=== PATIENT | female | born 1935 | race Asian ===

== ENCOUNTER 2017-05-11 15:59 | Inpatient (IN) | payer OTHER ==
[~2017-05-11] VITALS: Ht 142.2 cm; Wt 44.0 kg
[~2017-05-11 15:59] MED LIST: ASPIR 8181 MG PO; ASPIR-LOW81 M1 PO; LAC PO; LEVAQUIN750 MG PO; WARFARIN SODIUM5 MG PO; XARELTO10 M1 PO
[2017-05-11 17:18] LABS: BASOPHIL % 0.1 % (0-2); RED CELL DISTRIBUTION WIDTH 14.5 % (11.5-14.5)
[2017-05-11] MEDS ORDERED: DIGOXIN0.125 M1 PO (17:25)
[2017-05-11] MEDS ORDERED: LOPRESSOR50 M1 PO (17:25)
[2017-05-11 17:26] LABS: PLATELET COUNT 99 x10^3mcL (130-400)
[2017-05-11] MEDS ORDERED: ELEQUIS (17:26)
[2017-05-11 17:42] LABS: CALCIUM 8.7 mg/dL (8.5-10.1); CHLORIDE SERUM 98 mmol/L (98-107); CREATININE SERUM 0.6 mg/dL (0.6-1.0); GLUCOSE SERUM 89 mg/dL (74-106); POTASSIUM SERUM 4.1 mmol/L (3.5-5.1); SODIUM SERUM 135 mmol/L (136-145)
[2017-05-11 17:47] LABS: ALBUMIN 3.6 g/dL (3.4-5.0); ALKALINE PHOSPHATASE 70 U/L (46-116); ALT/SGPT 39 U/L (14-59); BILIRUBIN TOTAL 1.88 mg/dL (0.20-1.00); TOTAL PROTEIN, SERUM 7.1 g/dL (6.4-8.2)
[2017-05-11 18:26] LABS: AST/SGOT 53 U/L (15-37)
[2017-05-11 19:44] LABS: MAGNESIUM 1.8 mg/dL (1.8-2.4); PHOSPHOROUS 2.4 mg/dL (2.5-4.9)
[2017-05-11 19:54] LABS: FREE T4 1.28 ng/dL (0.76-1.46); FREE THYROXINE INDEX 2.9 ug/dL (1.4-4.5); T3 TOTAL 0.74 ng/mL; T4(THYROXINE) 7.5 ug/dL (4.7-13.3)
[2017-05-11 20:16] VITALS: BP 141/75
[2017-05-11 22:05] VITALS: BP 141/75
[2017-05-11 22:42] VITALS: BP 141/75
[2017-05-11 23:23] VITALS: BP 115/63
[2017-05-12 05:37] VITALS: BP 107/59
[2017-05-12 06:27] LABS: BASOPHIL % 0.3 % (0-2); RED CELL DISTRIBUTION WIDTH 14.4 % (11.5-14.5)
[2017-05-12 06:34] LABS: CALCIUM 8.4 mg/dL (8.5-10.1); CARBON DIOXIDE 24.3 mmol/L (21-32); CHLORIDE SERUM 107 mmol/L (98-107); CREATININE SERUM 0.8 mg/dL (0.6-1.0); GLUCOSE SERUM 80 mg/dL (74-106); MAGNESIUM 1.7 mg/dL (1.8-2.4); PHOSPHOROUS 3.2 mg/dL (2.5-4.9); SODIUM SERUM 139 mmol/L (136-145)
[2017-05-12 07:36] LABS: PLATELET COUNT 60 x10^3mcL (130-400)
[2017-05-12 10:20] VITALS: BP 107/51
[2017-05-12 12:53] VITALS: BP 117/60
[2017-05-12 13:00] LABS: microscopic required? YES; urine erythrocyte 3+ (NEGATIVE)
[2017-05-12 19:18] VITALS: BP 129/61
[2017-05-12 22:56] VITALS: BP 106/70
[2017-05-12 23:39] VITALS: Ht 142.2 cm; Wt 44.0 kg
[2017-05-13 05:38] VITALS: BP 134/66
[2017-05-13 06:25] LABS: BASOPHIL % 0.3 % (0-2); RED CELL DISTRIBUTION WIDTH 14.2 % (11.5-14.5)
[2017-05-13 06:34] LABS: PLATELET COUNT 61 x10^3mcL (130-400)
[2017-05-13 06:56] LABS: CALCIUM 8.9 mg/dL (8.5-10.1); CHLORIDE SERUM 102 mmol/L (98-107); CREATININE SERUM 0.9 mg/dL (0.6-1.0); GLUCOSE SERUM 110 mg/dL (74-106); POTASSIUM SERUM 4.6 mmol/L (3.5-5.1); SODIUM SERUM 138 mmol/L (136-145)
[2017-05-13 10:27] VITALS: BP 104/54
[2017-05-13 12:59] VITALS: BP 95/42
[2017-05-13 17:30] VITALS: BP 107/76
[2017-05-13 21:01] VITALS: BP 123/54
[2017-05-14 05:46] VITALS: BP 129/71
[2017-05-14 08:46] VITALS: BP 117/71
[2017-05-14 10:44] VITALS: BP 120/67
[2017-05-14 15:55] LABS: RED CELL DISTRIBUTION WIDTH 13.8 % (11.5-14.5)
[2017-05-14 16:16] LABS: CALCIUM 8.8 mg/dL (8.5-10.1); CHLORIDE SERUM 99 mmol/L (98-107); CREATININE SERUM 0.9 mg/dL (0.6-1.0); GLUCOSE SERUM 112 mg/dL (74-106); POTASSIUM SERUM 4.8 mmol/L (3.5-5.1); SODIUM SERUM 132 mmol/L (136-145)
[2017-05-14 16:21] LABS: PLATELET COUNT 52 x10^3mcL (130-400)
[2017-05-14 16:32] LABS: BAND NEUTROPHIL 12 % (0-10); BASOPHIL 0 % (0-2); MONOCYTE 20 % (0-7); SEGMENTED NEUTROPHILS 60 % (37-75)
[2017-05-14 16:34] LABS: PLATELET MORPHOLOGY PLATELETS DECREASED; rbc morphology (normal/abnorm) ABNORMAL (NORMAL)
[2017-05-14 16:37] VITALS: BP 133/81
[2017-05-14 21:11] VITALS: BP 134/64
[2017-05-15 05:57] VITALS: BP 150/86
[2017-05-15 06:43] LABS: RED CELL DISTRIBUTION WIDTH 13.9 % (11.5-14.5)
[2017-05-15 06:49] LABS: BASOPHIL % 0 % (0-2); CALCIUM 8.9 mg/dL (8.5-10.1); CARBON DIOXIDE 23.7 mmol/L (21-32); CHLORIDE SERUM 99 mmol/L (98-107); CREATININE SERUM 0.8 mg/dL (0.6-1.0); GLUCOSE SERUM 90 mg/dL (74-106); MAGNESIUM 1.9 mg/dL (1.8-2.4); PLATELET COUNT 56 x10^3mcL (130-400); POTASSIUM SERUM 4.7 mmol/L (3.5-5.1); SODIUM SERUM 130 mmol/L (136-145)
[2017-05-15 09:53] VITALS: BP 141/80
[2017-05-15 13:05] VITALS: BP 144/78
[2017-05-15] MEDS ORDERED: COUGH100 MG/5 M PO (14:46)
== END 2017-05-15 15:45 | disposition home or self-care (01) | DRG 113 ==
LOC: ED 15:59 → DU 18:35
PROVIDERS: Emergency Medicine; Family Medicine
DX: J06.9 Acute upper respiratory infection, unspecified (principal); N17.0 Acute kidney failure with tubular necrosis; I50.43 Acute on chronic combined systolic (congestive) and diastolic (congestive) heart failure; D69.6 Thrombocytopenia, unspecified; E83.39 Other disorders of phosphorus metabolism; I31.3 Pericardial effusion (noninflammatory); I11.0 Hypertensive heart disease with heart failure; M54.2 Cervicalgia; I48.91 Unspecified atrial fibrillation; Z53.29 Procedure and treatment not carried out because of patient's decision for other reasons; I25.10 Atherosclerotic heart disease of native coronary artery without angina pectoris; Z79.82 Long term (current) use of aspirin; Z68.1 Body mass index [BMI] 19.9 or less, adult; Z79.01 Long term (current) use of anticoagulants; Z95.5 Presence of coronary angioplasty implant and graft; Z88.0 Allergy status to penicillin; Z79.899 Other long term (current) drug therapy
CPT/HCPCS: 36600; 83880; 84439; 87804; J1885; J3475; J7030; J7620; Q0092; Q9967

== ENCOUNTER 2017-09-25 13:14 | Inpatient (IN) | payer OTHER ==
[~2017-09-25] VITALS: Ht 142.2 cm; Wt 38.0 kg
[~2017-09-25 13:14] MED LIST changes: +COUGH100 MG/5 M PO; +DIGOXIN0.125 M1 PO; +ELEQUIS; +LOPRESSOR50 M1 PO
[2017-09-25 14:12] LABS: BASOPHIL % 0.4 % (0-2); PLATELET COUNT 80 x10^3mcL (130-400); RED CELL DISTRIBUTION WIDTH 13.9 % (11.5-14.5)
[2017-09-25] MEDS ORDERED: NITROSTAT0.4 MG SL (14:22)
[2017-09-25 14:49] LABS: CALCIUM 8.8 mg/dL (8.5-10.1); CARBON DIOXIDE 24.7 mmol/L (21-32); CHLORIDE SERUM 107 mmol/L (98-107); CREATININE SERUM 0.9 mg/dL (0.6-1.0); GLUCOSE SERUM 113 mg/dL (74-106); POTASSIUM SERUM 4.1 mmol/L (3.5-5.1); SODIUM SERUM 139 mmol/L (136-145)
[2017-09-25 14:53] LABS: ALBUMIN 3.4 g/dL (3.4-5.0); ALKALINE PHOSPHATASE 96 U/L (46-116); ALT/SGPT 64 U/L (14-59); AST/SGOT 54 U/L (15-37); BILIRUBIN TOTAL 1.5 mg/dL (0.20-1.00); TOTAL PROTEIN, SERUM 7.1 g/dL (6.4-8.2)
[2017-09-25 16:39] VITALS: BP 151/80
[2017-09-25 17:03] LABS: T3 TOTAL 0.94 ng/mL
[2017-09-25 17:06] LABS: FREE T4 1.11 ng/dL (0.76-1.46); FREE THYROXINE INDEX 2.8 ug/dL (1.4-4.5); T4(THYROXINE) 7.6 ug/dL (4.7-13.3)
[2017-09-25 17:21] LABS: CHOLESTEROL/HDL RATIO 2.6; PHOSPHOROUS 3.6 mg/dL (2.5-4.9)
[2017-09-25 17:30] VITALS: BP 138/67
[2017-09-25 18:05] LABS: RED BLOOD CELLS 3.28 M/mm3 (4.10-5.10)
[2017-09-25 18:34] LABS: IRON 101 ug/dL (50-170); TOTAL IRON BINDING CAPACITY 361 ug/dL (250-450)
[2017-09-25 18:38] LABS: microscopic required? YES; urine erythrocyte 2+ (NEGATIVE)
[2017-09-25 20:37] VITALS: BP 115/58
[2017-09-25 22:04] VITALS: Ht 142.2 cm; Wt 38.0 kg
[2017-09-26 04:37] VITALS: BP 124/61
[2017-09-26 07:01] LABS: CALCIUM 8.8 mg/dL (8.5-10.1); CHLORIDE SERUM 106 mmol/L (98-107); CREATININE SERUM 0.9 mg/dL (0.6-1.0); GLUCOSE SERUM 88 mg/dL (74-106); MAGNESIUM 2.1 mg/dL (1.8-2.4); PHOSPHOROUS 4.3 mg/dL (2.5-4.9); POTASSIUM SERUM 4.1 mmol/L (3.5-5.1); SODIUM SERUM 141 mmol/L (136-145)
[2017-09-26 07:46] LABS: BASOPHIL % 0.3 % (0-2); PLATELET COUNT 84 x10^3mcL (130-400); RED CELL DISTRIBUTION WIDTH 13.4 % (11.5-14.5)
[2017-09-26 08:55] VITALS: BP 113/86
[2017-09-26 12:17] VITALS: BP 115/77
[2017-09-26 12:58] VITALS: BP 113/65
== END 2017-09-26 13:50 | disposition home or self-care (01) | DRG 194 ==
LOC: ED 13:14 → DU 16:00
PROVIDERS: Family Medicine
DX: I11.0 Hypertensive heart disease with heart failure (principal); N17.0 Acute kidney failure with tubular necrosis; E86.0 Dehydration; I48.2 Chronic atrial fibrillation; G90.8 Other disorders of autonomic nervous system; I08.1 Rheumatic disorders of both mitral and tricuspid valves; Z88.0 Allergy status to penicillin; Z95.5 Presence of coronary angioplasty implant and graft; I50.43 Acute on chronic combined systolic (congestive) and diastolic (congestive) heart failure
CPT/HCPCS: 83880; 84439; 97110-GP; 97116-GP; C9113; J1940; J7030; J7040; J8597; Q0092

== ENCOUNTER 2018-07-27 20:41 | Inpatient (IN) | payer OTHER ==
[~2018-07-27] VITALS: Ht 142.2 cm; Wt 34.6 kg
[~2018-07-27 20:41] MED LIST changes: +L20 PO; +NITROSTAT0.4 MG SL; +ZES10 PO
[2018-07-27 20:48] VITALS: Ht 142.2 cm; Wt 34.6 kg
[2018-07-27 21:32] LABS: BASOPHIL % 0.7 % (0-2); RED CELL DISTRIBUTION WIDTH 13.7 % (11.5-14.5)
[2018-07-27 21:33] LABS: PLATELET COUNT 110 x10^3mcL (130-400)
[2018-07-27 21:37] LABS: CALCIUM 8.8 mg/dL (8.5-10.1); CARBON DIOXIDE 29.3 mmol/L (21-32); CHLORIDE SERUM 106 mmol/L (98-107); CREATININE SERUM 0.9 mg/dL (0.6-1.0); GLUCOSE SERUM 89 mg/dL (74-106); POTASSIUM SERUM 4.4 mmol/L (3.5-5.1); SODIUM SERUM 140 mmol/L (136-145)
[2018-07-27 21:41] LABS: ALBUMIN 3.5 g/dL (3.4-5.0); ALKALINE PHOSPHATASE 72 U/L (46-116); ALT/SGPT 21 U/L (14-59); AST/SGOT 23 U/L (15-37); BILIRUBIN TOTAL 0.6 mg/dL (0.20-1.00); LIPASE 203 IU/L (73-393); MAGNESIUM 1.9 mg/dL (1.8-2.4); TOTAL PROTEIN, SERUM 7.2 g/dL (6.4-8.2)
[2018-07-28] VITALS (7 sets, daily range): BP systolic 94–144; BP diastolic 38–94
[2018-07-28 01:26] LABS: RED BLOOD CELLS 3.1 M/mm3 (4.10-5.10)
[2018-07-28 01:52] LABS: microscopic required? YES; urine erythrocyte 2+ (NEGATIVE)
[2018-07-28 02:03] LABS: IRON 100 ug/dL (50-170); TOTAL IRON BINDING CAPACITY 267 ug/dL (250-450)
[2018-07-28 06:00] LABS: CHLORIDE SERUM 104 mmol/L (98-107); CREATININE SERUM 0.9 mg/dL (0.6-1.0); GLUCOSE SERUM 82 mg/dL (74-106); MAGNESIUM 1.9 mg/dL (1.8-2.4); PHOSPHOROUS 3.7 mg/dL (2.5-4.9); POTASSIUM SERUM 3.6 mmol/L (3.5-5.1); SODIUM SERUM 141 mmol/L (136-145)
[2018-07-28 06:09] LABS: BASOPHIL % 0.5 % (0-2)
[2018-07-28 06:29] LABS: PLATELET COUNT 106 x10^3mcL (130-400)
[2018-07-29 05:00] VITALS: BP 118/49
[2018-07-29 09:01] VITALS: BP 158/68
[2018-07-29 12:22] VITALS: BP 120/45
[2018-07-29 13:15] VITALS: BP 120/48
== END 2018-07-29 13:30 | disposition home or self-care (01) | DRG 203 ==
LOC: ED 20:41 → DU 23:18
PROVIDERS: Emergency Medicine; ADMIT Internal Medicine
DX: M94.0 Chondrocostal junction syndrome [Tietze] (principal); N17.0 Acute kidney failure with tubular necrosis; I48.91 Unspecified atrial fibrillation; I11.0 Hypertensive heart disease with heart failure; I50.30 Unspecified diastolic (congestive) heart failure; M06.9 Rheumatoid arthritis, unspecified; Z88.0 Allergy status to penicillin; I25.10 Atherosclerotic heart disease of native coronary artery without angina pectoris; Z79.899 Other long term (current) drug therapy; Z82.49 Family history of ischemic heart disease and other diseases of the circulatory system; D61.818 Other pancytopenia; I08.1 Rheumatic disorders of both mitral and tricuspid valves
CPT/HCPCS: 83880; J1940; J7030; Q0092

== ENCOUNTER 2018-09-14 16:21 | Inpatient (IN) | payer OTHER ==
[~2018-09-14] VITALS: Ht 144.8 cm; Wt 33.6 kg
[2018-09-14 16:30] VITALS: Ht 144.8 cm; Wt 33.6 kg
--- NOTE | 2018-09-14 16:34 | NUR ---
EKG IN TRIAGE.
[2018-09-14 17:04] LABS: BASOPHIL % 0.6 % (0-2); RED CELL DISTRIBUTION WIDTH 14.1 % (11.5-14.5)
[2018-09-14 17:05] LABS: PLATELET COUNT 117 x10^3mcL (130-400)
--- NOTE | 2018-09-14 17:05 | NUR ---
PT PRESENTS TO ED WITH C/O OF SOB AND CHEST PAIN. PER DAUGHTER PT HAS BEEN C/O OF SOB AND MINOR CHEST PAIN X2 WKS, BUT PAIN HAS BECOME MORE SEVERE TODAY. PT ALSO STS SHE IS FEELING DIZZY. GRAND DAUGHTER STS PT HAS NOT TAKEN MEDICATION FOR THE PAIN AT HOME. PT DENIES ABDOMINAL PAIN, SYNCOPE, HEAD PAIN, OR FEVER. PT AAOX4, RESP E/U, LAYING ON GURNEY IN POSITION OF COMFORT, ON FULL CONCHE OPERATOR, NO ACUTE DISTRESS NOTED AT THIS TIME, WILL CONTINUE MONITOR.
[2018-09-14 17:12] LABS: CALCIUM 9.4 mg/dL (8.5-10.1); CARBON DIOXIDE 30.4 mmol/L (21-32); CHLORIDE SERUM 104 mmol/L (98-107); GLUCOSE SERUM 124 mg/dL (74-106); POTASSIUM SERUM 4.3 mmol/L (3.5-5.1); SODIUM SERUM 139 mmol/L (136-145)
[2018-09-14 17:17] LABS: ALBUMIN 3.6 g/dL (3.4-5.0); ALKALINE PHOSPHATASE 67 U/L (46-116); ALT/SGPT 27 U/L (14-59); AST/SGOT 27 U/L (15-37); BILIRUBIN TOTAL 0.49 mg/dL (0.20-1.00); MAGNESIUM 1.9 mg/dL (1.8-2.4)
--- NOTE | 2018-09-14 19:10 | NUR ---
RECEIVED REPORT FROM SLY LUCIANO. I WILL RESUME FURTHER CARE OF THIS PATIENT.
--- NOTE | 2018-09-14 19:20 | NUR ---
PT IS LAYING IN BED, AAOX4, NO SIGNS OF DISTRESS, RESP E/U, PT DENIES ANY SOB AT THIS TIME. PT IS COLD, OFFERED PT A WARM BLANKET. DAUGHTER AT THE BEDSIDE. WILL CONT TO MONITOR.
--- NOTE | 2018-09-14 19:57 | NUR ---
DR GRIMALDO AT BEDSIDE DISCUSSING PLAN OF CARE WITH PATIENT.
--- NOTE | 2018-09-14 20:04 | NUR ---
MED REC AND BELONGINGS LIST COMPLETE.
--- NOTE | 2018-09-14 20:38 | NUR ---
MEDICATED PT PER MD ORDERS, SEE EMAR. PT TOLERATED WELL. PT IS AAOX4, NO SIGNS OF DISTRESS, RESP E/U. WILL CONT TO MONITOR.
--- NOTE | 2018-09-14 21:31 | NUR ---
GAVE REPORT TO SAM LUCIANO ON TELE, WHO WILL RESUME FURTHER CARE OF THIS PATEINT.
[2018-09-14 21:40] LABS: PHOSPHOROUS 3.7 mg/dL (2.5-4.9)
[2018-09-14 21:42] LABS: CHOLESTEROL/HDL RATIO 2.8
--- NOTE | 2018-09-14 21:45 | NUR ---
RECIEVED PT FROM ER, PT ADMIT FOR CHF, BENIGN POSITIONAL VERTIGO, PT IS A/O X4, VERBAL RESPONSIVE, DENY ANY HEADACHE OR DIZZINESS, LUNG SOUND CLEAR BILATERAL, NO COUGH, NO SOB, PT IS ON TELE 12, A.FIB, C/O CHEST PAIN AT LEFT SIDE AND RADIATED TO BACK, BOWEL SOUND PRESENT ALL 4 QUADRANTS, NO DISTENTION, NO TENDER. PEDAL PULSE PRESENT BOTH FEET, NO EDEMA, IV AT RIGHT FA, NO LEAKING, NO INFILTRATION. ALL ADLS ASSIST, ALL NEED MET, CALL LIGHT IN REACH, WILL CONTINUE TO MONITOR.
--- NOTE | 2018-09-14 21:45 | NUR ---
RECIEVED PT FROM ER, PT ADMIT FOR CHF, BENIGN POSITIONAL VERTIGO, PT IS A/O X4, VERBAL RESPONSIVE, DENY ANY HEADACHE OR DIZZINESS, LUNG SOUND DIM BILATERAL, NO COUGH, NO SOB, PT IS ON TELE 12, A.FIB, C/O CHEST PAIN AT LEFT SIDE AND RADIATED TO BACK, BOWEL SOUND PRESENT ALL 4 QUADRANTS, NO DISTENTION, NO TENDER. PEDAL PULSE PRESENT BOTH FEET, NO EDEMA, IV AT RIGHT FA, NO LEAKING, NO INFILTRATION. ALL ADLS ASSIST, ALL NEED MET, CALL LIGHT IN REACH, WILL CONTINUE TO MONITOR.
[2018-09-14 22:07] VITALS: BP 147/77
[2018-09-14] MEDS ORDERED: ELIQUIS2.5 MG PO (22:26)
--- NOTE | 2018-09-14 22:27 | NUR ---
PT REQUESTED TO HAVE PREVIOUS IV REMOVED DUE TO PAIN AND DISCOMFORT. NEW IV STARTED TO RFA, #22G, FLUSHED WELL WITH NS AND GOOD BLOOD RETURN. S/L AT THIS TIME. NO DISTRESS OBSERVED. CALL LIGHT WITHIN REACH. WILL CONTINUE TO MONITOR
--- NOTE | 2018-09-14 23:07 | NUR ---
PER CATERER HELPER, PT'S HR DROPPED LOW 39. PT LAYING IN BED, AWARE AND ALERT, EASILY AROUSABLE TO VERBAL STIMULI. AFIB TO TELE #12 AT THIS TIME, HR 54. CALL LIGHT WITHIN REACH. WILL CONTINUE TO MONITOR
--- NOTE | 2018-09-14 23:55 | NUR ---
PT LAYING IN BED, BREATHING EVEN AND UNLABORED. NO ACUTE DISTRESS OBSERVED. AROUSABLE TO VERBAL STIMULI. COMFORT AND SAFETY MEASURES IN PLACE. CALL LIGHT WITHIN REACH. WILL CONTINUE TO MONITOR
--- NOTE | 2018-09-15 03:54 | NUR ---
PER PROGRAMMER ENGINEERING AND SCIENTIFIC, PT'S HR DROPPED TO 37. PT LAYING IN BED, AWAKE AND ALERT, EASILY AROUSABLE TO VERBAL STIMULI. AFIB TO TELE #12 AT THIS TIME. CALL LIGHT WITHIN REACH. WILL CONTINUE TO MONITOR
--- NOTE | 2018-09-15 04:20 | NUR ---
PT AMBULATED TO BATHROOM AND BACK TO BED WITHOUT INCIDENT. PT ABLE TO URINATE. UA COLLECTED ORDERED. 600 ML CLEAR YELLOW URINE EMPTIED. PT APPEARS TO BE IN PAIN AND GRABBING LLE. ATTEMPTED TO MEDICATED PT WITH TYLENOL BUT PT REFUSED. COMFORT AND SAFETY MEASURES REMAIN IN PLACE. CALL LIGHT WITHIN REACH. WILL CONTINUE TO MONITOR
--- NOTE | 2018-09-15 05:12 | NUR ---
NO SIGNIFICANT CHANGES TO REPORT, PT COMPLIED WITH NURSING CARE THROUGHOUT THE SHIFT WITH NO ACUTE EVENTS OVERNIGHT. NO ACUTE DISTRESS OBSERVED AT THIS TIME. PT LAYING IN BED, BREATHING EVEN AND UNLABORED, AROUSABLE TO VERBAL STIMULI. COMFORT AND SAFETY MEASURES MAINTAINED. ALL NEEDS ASSESSED AND ATTENDED TO. CALL LIGHT WITHIN REACH. WILL CONTINUE TO MONITOR AND ENDORSE CARE TO DAY SHIFT NURSE
[2018-09-15 05:33] LABS: microscopic required? YES; urine erythrocyte 2+ (NEGATIVE)
--- NOTE | 2018-09-15 06:10 | NUR ---
PRE OP CHECKLIST INITIATED. PT HAS BEEN NPO SINCE 0000 LAST NIGHT. NO SIGNIFICANT CHANGES TO REPORT, PT COMPLIED WITH NURSING CARE THROUGHOUT THE SHIFT WITH NO ACUTE EVENTS OVERNIGHT. NO ACUTE DISTRESS OBSERVED AT THIS TIME. DENIES PAIN OR DISCOMFORT. PT LAYING IN BED, BREATHING EVEN AND UNLABORED, AROUSABLE TO VERBAL STIMULI. COMFORT AND SAFETY MEASURES MAINTAINED. ALL NEEDS ASSESSED AND ATTENDED TO. CALL LIGHT WITHIN REACH. WILL CONTINUE TO MONITOR AND ENDORSE CARE TO DAY SHIFT NURSE
[2018-09-15 06:50] VITALS: BP 130/76
[2018-09-15 06:51] LABS: CALCIUM 9.8 mg/dL (8.5-10.1); CARBON DIOXIDE 34.4 mmol/L (21-32); CHLORIDE SERUM 101 mmol/L (98-107); GLUCOSE SERUM 84 mg/dL (74-106); POTASSIUM SERUM 3.7 mmol/L (3.5-5.1); SODIUM SERUM 141 mmol/L (136-145)
[2018-09-15 06:54] LABS: BASOPHIL % 0.6 % (0-2); PLATELET COUNT 123 x10^3mcL (130-400); RED CELL DISTRIBUTION WIDTH 13.6 % (11.5-14.5)
--- NOTE | 2018-09-15 07:05 | NUR ---
RECEIVED BEDSIDE REPORT FROM FILTER FILLER NURSE AT THIS TIME. PATIENT RESTING COMFORTABLY IN BED. NO APPARENT DISTRESS OR DISCOMFORT NOTED. BREATHING EVEN AND UNLABORED. NO RESPIRATORY DISTRESS NOTED. NO INDICATION OF CHEST PAIN AT THIS TIME. IV PATENT AND INTACT TO THE RFA. ALL QUESTIONS AND CONCERNS ADDRESSED. ALL NEEDS ATTENDED TO. WILL CONTINUE TO MONITOR
[2018-09-15 07:55] VITALS: BP 120/64
--- NOTE | 2018-09-15 09:50 | NUR ---
PHYSICAL THERAPY AT BEDSIDE WORKING WITH PATIENT. PATIENT AMBULATING HALLWAYS WELL. NO APPARENT DISTRESS OR DISCOMFORT NOTED.
--- NOTE | 2018-09-15 10:02 | NUR ---
ALL MORNING MEDICATIONS ADMINISTERED AT THIS TIME. PATIENT TOLERATED MEDICATIONS WELL. NO ADVERSE EFFECTS NOTED. ALL NEEDS ATTENDED TO. WILL CONTINUE TO MONITOR
[2018-09-15 12:28] VITALS: BP 93/40
--- NOTE | 2018-09-15 13:13 | NUR ---
PATIENT SITTING UP IN BED EATING LUNCH AT THIS TIME. PATIENT TOLERATING DIET WELL. NO APPARENT DISTRESS OR DISCOMFORT NOTED. ALL NEEDS ATTENDED TO. WILL CONTINUE TO MONITOR
--- NOTE | 2018-09-15 16:00 | NUR ---
REPORTED TO DR CIFUENTES PATIENT BLOOD PRESSURE IS LOW AT THIS TIME. AWAITING NEW ORDERS. WILL CONTINUE TO MONITOR
[2018-09-15 16:06] VITALS: BP 82/50
--- NOTE | 2018-09-15 18:59 | NUR ---
PATIENT RESTING COMFORTABLY IN BED AT THIS TIME. NO APPARENT DISTRESS OR DISCOMFORT NOTED. IV PATENT AND INTACT. ALL QUESTIONS AND CONCERNS ADDRESSED. SAFETY PRECAUTIONS MAINTAINED. ALL NEEDS ATTENDED TO. WILL ENDORSE ALL CARE TO FAMILY AND MARRIAGE COUNSELLOR NURSE
--- NOTE | 2018-09-15 19:30 | NUR ---
RECEIVED PT FROM DAY SHIFT RN. PT IS AA&O X4 AND ABLE TO FOLLOW SIMPLE COMMANDS. PT IS PRIMARILY MANDARIN SPEAKING BUT IS ABLE TO COMMUNICATE SOME WITH GESTURES. PT GESTURES TO NO PAIN AT THIS TIME. THERE ARE NO SYMPTOMS OF CHEST PAIN OR SHORTNESS OF BREATH AT THS TIME. NO USE OF ACCESSORY MUSCLES OR LABORED BREATHING ON ASSESSMENT. PT IS ON TELE #[address] SAFETY MEASURES ARE IN PLACE. CALL LIGHT IS WITHIN REACH. WILL CONTINUE TO MONITOR.
--- NOTE | 2018-09-15 20:46 | NUR ---
pt bp: 89/51. DR WOODWARD MADE AWARE. NO NEW ORDERS AT THIS TIME. PT DENIES HEADACHE, DIZZINESS.
[2018-09-15 21:35] VITALS: BP 89/51
--- NOTE | 2018-09-16 05:32 | NUR ---
PT SLEPT THROUGHOUT THE NIGHT. NO DISTRESS NOTED THROUGHOUT THE DHIFT. NO SIGNIFICANT CHANGES. WILL ENDORSE TO DAY SHIFT RN.
[2018-09-16 05:49] VITALS: BP 99/45
[2018-09-16 06:41] LABS: CALCIUM 9.6 mg/dL (8.5-10.1); CARBON DIOXIDE 32.6 mmol/L (21-32); CHLORIDE SERUM 102 mmol/L (98-107); CREATININE SERUM 1.5 mg/dL (0.6-1.0); GLUCOSE SERUM 86 mg/dL (74-106); MAGNESIUM 2.2 mg/dL (1.8-2.4); PHOSPHOROUS 5.6 mg/dL (2.5-4.9); POTASSIUM SERUM 4.3 mmol/L (3.5-5.1); SODIUM SERUM 140 mmol/L (136-145)
--- NOTE | 2018-09-16 07:25 | NUR ---
PT RECIEVED SITTING UP IN BED READING A BOOK. A/O X 4 WITH NO S/S OF MENDOZA OR DIZZINESS. PT ON TELE MONITOR # 12. PT A-FIB WITH HR FLUCTUATING BETWEEN 30-60'S. HR AT 51 AT THIS TIME. NO S/S OF ANY CP OR DISTRESS AT THIS TIME. PULSES PALPABLE AND NO EDEMA NOTED. LUNGS CTA WITH NO S/S OF SOB OR DISTRESS. RR EQUAL AND UNLABORED. BOWEL SOUNDS EQUAL X4, ABD SOFT AND NONDISTENDED. PT ON FLUID RESTRICTION OF 1200 DAILY. AMBUKLATORY TOLERATED. SKIN CDI. SALINE LOCK AT RFA 22 G INTACT AND PATENT WITH NO REDNESS OR INFALAMATION NOTED. PT CALM AND COOPERATIVE. BED IN LOW POSITION. SAFETY PRECAUTIONS IN PLACE. CALL LIGHT WITHIN REACH. WILL CONTINUE TO MONITOR.
[2018-09-16 07:29] LABS: BASOPHIL % 0.5 % (0-2); PLATELET COUNT 124 x10^3mcL (130-400); RED CELL DISTRIBUTION WIDTH 13.9 % (11.5-14.5)
[2018-09-16 09:52] VITALS: BP 109/53
[2018-09-16 13:25] VITALS: BP 102/58
[2018-09-16 14:30] VITALS: BP 145/76
--- NOTE | 2018-09-16 14:58 | NUR ---
PATIENT STABLE FOR DISCHARGE HOME, DISCHARGE INSTRUCTIONS REVIEWED WITH PATIENTS DAUGHTER CONI, ALL QUESTIONS AND CONCERNS ADDRESSED. IV TO RFA REMOVED, CATH INTACT, ID BANDS REMOVED TELE MONITOR REMOVED. PATIENT ASSISTED DOWN TO LOBBY VIA WHEELCHAIR ACCOMPANIED BY NURSE AID AND FAMILY. ALL PERSONAL BELONGINGS SENT HOME WITH PATIENT.
== END 2018-09-16 14:55 | disposition home or self-care (01) | DRG 194 ==
LOC: ED 16:21 → DU 20:39
PROVIDERS: Emergency Medicine; ADMIT Family Medicine
DX: I11.0 Hypertensive heart disease with heart failure (principal); N17.0 Acute kidney failure with tubular necrosis; I50.21 Acute systolic (congestive) heart failure; I48.91 Unspecified atrial fibrillation; R42 Dizziness and giddiness; I25.10 Atherosclerotic heart disease of native coronary artery without angina pectoris; Z98.42 Cataract extraction status, left eye; Z98.41 Cataract extraction status, right eye; Z79.899 Other long term (current) drug therapy; Z82.49 Family history of ischemic heart disease and other diseases of the circulatory system; Z88.0 Allergy status to penicillin; Z95.5 Presence of coronary angioplasty implant and graft; E78.5 Hyperlipidemia, unspecified; I08.1 Rheumatic disorders of both mitral and tricuspid valves; I27.20 Pulmonary hypertension, unspecified
CPT/HCPCS: 83880; J1940; J8597; Q0092

== ENCOUNTER 2019-09-19 12:21 | Inpatient (IN) | payer OTHER ==
[~2019-09-19] VITALS: Ht 124.5 cm; Wt 33.1 kg
[~2019-09-19 12:21] MED LIST changes: +ELIQUIS2.5 MG PO
[2019-09-19 12:25] VITALS: Ht 124.5 cm; Wt 33.1 kg
[2019-09-19 13:00] LABS: BASOPHIL % 0.3 % (0-2); RED CELL DISTRIBUTION WIDTH 13.9 % (11.5-14.5)
[2019-09-19 13:03] LABS: PLATELET COUNT 105 x10^3mcL (130-400)
[2019-09-19 13:16] LABS: CALCIUM 9.3 mg/dL (8.5-10.1); CARBON DIOXIDE 30.3 mmol/L (21-32); CHLORIDE SERUM 108 mmol/L (98-107); GLUCOSE SERUM 94 mg/dL (74-106); POTASSIUM SERUM 4.7 mmol/L (3.5-5.1); SODIUM SERUM 145 mmol/L (136-145)
[2019-09-19 13:21] LABS: ALBUMIN 3.7 g/dL (3.4-5.0); ALKALINE PHOSPHATASE 59 U/L (46-116); ALT/SGPT 28 U/L (14-59); AST/SGOT 28 U/L (15-37); BILIRUBIN TOTAL 0.6 mg/dL (0.20-1.00); TOTAL PROTEIN, SERUM 7.1 g/dL (6.4-8.2)
[2019-09-19] MEDS ORDERED: LANOXIN0.125 MG PO (15:02)
[2019-09-19] MEDS ORDERED: ELIQUIS2.5 MG PO (15:03)
[2019-09-19 15:28] LABS: MAGNESIUM 2.3 mg/dL (1.8-2.4)
[2019-09-19 15:29] LABS: CHOLESTEROL/HDL RATIO 2.7
[2019-09-19 16:22] VITALS: BP 174/77
[2019-09-19] MEDS ORDERED: BENGAY GREASELE1 CRE TOP (19:27)
[2019-09-19 22:38] VITALS: BP 146/47
[2019-09-20 05:37] VITALS: BP 108/45
[2019-09-20 07:06] LABS: CALCIUM 9.9 mg/dL (8.5-10.1); CARBON DIOXIDE 33.7 mmol/L (21-32); CHLORIDE SERUM 103 mmol/L (98-107); CREATININE SERUM 1.1 mg/dL (0.6-1.0); GLUCOSE SERUM 87 mg/dL (74-106); POTASSIUM SERUM 4.3 mmol/L (3.5-5.1); SODIUM SERUM 141 mmol/L (136-145)
[2019-09-20 07:27] LABS: BASOPHIL % 0.4 % (0-2); PLATELET COUNT 110 x10^3mcL (130-400); RED CELL DISTRIBUTION WIDTH 13.5 % (11.5-14.5)
[2019-09-20 08:43] VITALS: BP 128/49
[2019-09-20 12:11] VITALS: BP 101/42
[2019-09-20 15:50] VITALS: BP 110/74
[2019-09-20 19:52] VITALS: BP 100/52
[2019-09-21 05:23] VITALS: BP 114/65
[2019-09-21 07:28] LABS: BASOPHIL % 0.4 % (0-2); RED CELL DISTRIBUTION WIDTH 13.4 % (11.5-14.5)
[2019-09-21 08:02] LABS: CARBON DIOXIDE 31.2 mmol/L (21-32); CHLORIDE SERUM 102 mmol/L (98-107); CREATININE SERUM 1.2 mg/dL (0.6-1.0); GLUCOSE SERUM 80 mg/dL (74-106); POTASSIUM SERUM 4.4 mmol/L (3.5-5.1); SODIUM SERUM 142 mmol/L (136-145)
[2019-09-21] MEDS ORDERED: ZES10 PO (08:07)
[2019-09-21] MEDS ORDERED: L20 PO (08:07)
[2019-09-21 08:16] LABS: PLATELET COUNT 109 x10^3mcL (130-400)
[2019-09-21 08:56] VITALS: BP 109/55
[2019-09-21 10:01] VITALS: BP 109/55
== END 2019-09-21 10:51 | disposition home or self-care (01) | DRG 194 ==
LOC: ED 12:21 → DU 14:28
PROVIDERS: Emergency Medicine; ADMIT Family Medicine
DX: I11.0 Hypertensive heart disease with heart failure (principal); N17.0 Acute kidney failure with tubular necrosis; I50.21 Acute systolic (congestive) heart failure; I48.91 Unspecified atrial fibrillation; I27.20 Pulmonary hypertension, unspecified; I25.10 Atherosclerotic heart disease of native coronary artery without angina pectoris; Z88.0 Allergy status to penicillin
CPT/HCPCS: 83880; G0378; J1940; J7042; Q0092

== ENCOUNTER 2020-02-07 07:51 | Inpatient (IN) | payer OTHER ==
[~2020-02-07] VITALS: Ht 129.5 cm; Wt 32.7 kg
[~2020-02-07 07:51] MED LIST changes: +BENGAY GREASELE1 CRE TOP; +LANOXIN0.125 MG PO
[2020-02-07 07:58] VITALS: Ht 129.5 cm; Wt 32.7 kg
[2020-02-07 08:50] LABS: BASOPHIL % 0.6 % (0-2); RED CELL DISTRIBUTION WIDTH 13.4 % (11.5-14.5)
[2020-02-07 08:51] LABS: PLATELET COUNT 106 x10^3mcL (130-400)
[2020-02-07 08:55] LABS: CARBON DIOXIDE 30.1 mmol/L (21-32); CHLORIDE SERUM 104 mmol/L (98-107); CREATININE SERUM 0.9 mg/dL (0.6-1.0); GLUCOSE SERUM 82 mg/dL (74-106); POTASSIUM SERUM 3.9 mmol/L (3.5-5.1); SODIUM SERUM 140 mmol/L (136-145)
[2020-02-07 09:00] LABS: ALBUMIN 3.9 g/dL (3.4-5.0); ALKALINE PHOSPHATASE 67 U/L (46-116); ALT/SGPT 39 U/L (14-59); AST/SGOT 32 U/L (15-37); BILIRUBIN TOTAL 0.66 mg/dL (0.20-1.00); TOTAL PROTEIN, SERUM 7.4 g/dL (6.4-8.2)
[2020-02-07 09:37] LABS: microscopic required? YES; urine erythrocyte 2+ (NEGATIVE)
[2020-02-07 11:30] LABS: MAGNESIUM 2.1 mg/dL (1.8-2.4); PHOSPHOROUS 3.3 mg/dL (2.5-4.9)
[2020-02-07 11:39] LABS: FREE T4 1.16 ng/dL (0.76-1.46); FREE THYROXINE INDEX 2.7 ug/dL (1.4-4.5); T4(THYROXINE) 6.8 ug/dL (4.7-13.3)
[2020-02-07 12:10] LABS: T3 TOTAL 1.08 ng/mL
[2020-02-07 12:16] VITALS: BP 131/60
[2020-02-07 12:52] VITALS: BP 140/60
[2020-02-07 16:00] VITALS: BP 136/53
[2020-02-07 23:10] VITALS: BP 119/60
[2020-02-08 06:20] VITALS: BP 127/55
[2020-02-08 07:12] LABS: BASOPHIL % 0.6 % (0-2); RED CELL DISTRIBUTION WIDTH 13.2 % (11.5-14.5)
[2020-02-08 07:24] LABS: CALCIUM 9.5 mg/dL (8.5-10.1); CARBON DIOXIDE 32.3 mmol/L (21-32); CHLORIDE SERUM 101 mmol/L (98-107); CREATININE SERUM 1.1 mg/dL (0.6-1.0); GLUCOSE SERUM 83 mg/dL (74-106); POTASSIUM SERUM 3.6 mmol/L (3.5-5.1); SODIUM SERUM 139 mmol/L (136-145)
[2020-02-08 07:27] LABS: PLATELET COUNT 103 x10^3mcL (130-400)
[2020-02-08 07:40] VITALS: BP 116/59
[2020-02-08 12:59] VITALS: BP 101/46
[2020-02-08 16:53] VITALS: BP 102/32
[2020-02-08 20:06] VITALS: BP 107/41
[2020-02-09 05:36] VITALS: BP 96/44
[2020-02-09 06:53] LABS: BASOPHIL % 0.3 % (0-2); RED CELL DISTRIBUTION WIDTH 13.9 % (11.5-14.5)
[2020-02-09 07:20] LABS: PLATELET COUNT 124 x10^3mcL (130-400)
[2020-02-09 07:31] LABS: CALCIUM 10.1 mg/dL (8.5-10.1); CARBON DIOXIDE 29.7 mmol/L (21-32); CHLORIDE SERUM 101 mmol/L (98-107); CREATININE SERUM 1.7 mg/dL (0.6-1.0); GLUCOSE SERUM 87 mg/dL (74-106); MAGNESIUM 2.2 mg/dL (1.8-2.4); POTASSIUM SERUM 4.5 mmol/L (3.5-5.1); SODIUM SERUM 141 mmol/L (136-145)
[2020-02-09 08:20] VITALS: BP 92/40
[2020-02-09] MEDS ORDERED: ZES10 PO (08:49)
[2020-02-09] MEDS ORDERED: L20 PO (08:49)
[2020-02-09] MEDS ORDERED: LANOXIN0.125 MG PO (08:49)
[2020-02-09 12:17] VITALS: BP 107/57
[2020-02-09 13:49] VITALS: BP 107/57
[2020-02-09 16:27] VITALS: BP 107/55
== END 2020-02-09 16:38 | disposition home or self-care (01) | DRG 194 ==
LOC: ED 07:51 → MU 10:28 → DU 10:28 → MU 11:57 → DU 16:55
PROVIDERS: Emergency Medicine; Urology; ADMIT Student in an Organized Health Care Education/Training Program; ATTEND Student in an Organized Health Care Education/Training Program
DX: I11.0 Hypertensive heart disease with heart failure (principal); N17.0 Acute kidney failure with tubular necrosis; I25.10 Atherosclerotic heart disease of native coronary artery without angina pectoris; Z20.828 Contact with and (suspected) exposure to other viral communicable diseases; I50.43 Acute on chronic combined systolic (congestive) and diastolic (congestive) heart failure; E78.5 Hyperlipidemia, unspecified; I08.1 Rheumatic disorders of both mitral and tricuspid valves; I48.20 Chronic atrial fibrillation, unspecified; Z95.5 Presence of coronary angioplasty implant and graft; Z88.0 Allergy status to penicillin
CPT/HCPCS: 83880; 84439; G0378; J1940; Q0092

== ENCOUNTER 2020-07-16 10:19 | Inpatient (IN) | payer OTHER ==
[~2020-07-16] VITALS: Ht 129.5 cm; Wt 33.2 kg
[2020-07-16 11:33] LABS: BASOPHIL % 0.7 % (0.2-1.3); RED CELL DISTRIBUTION WIDTH 13.5 % (12.3-17.7)
[2020-07-16 11:36] LABS: PLATELET COUNT 93 x10^3mcL (179-408)
[2020-07-16 11:42] LABS: CARBON DIOXIDE 28.1 mmol/L (21-32); CHLORIDE SERUM 107 mmol/L (98-107); CREATININE SERUM 0.9 mg/dL (0.6-1.0); GLUCOSE SERUM 109 mg/dL (74-106); POTASSIUM SERUM 4.2 mmol/L (3.5-5.1); SODIUM SERUM 143 mmol/L (136-145)
[2020-07-16 11:47] LABS: ALBUMIN 3.4 g/dL (3.4-5.0); ALKALINE PHOSPHATASE 60 U/L (46-116); ALT/SGPT 27 U/L (14-59); AST/SGOT 24 U/L (15-37); BILIRUBIN TOTAL 0.6 mg/dL (0.20-1.00); TOTAL PROTEIN, SERUM 6.5 g/dL (6.4-8.2)
[2020-07-16 14:20] VITALS: BP 128/55
[2020-07-16 16:04] VITALS: BP 97/64
[2020-07-16 20:21] VITALS: BP 133/73
[2020-07-17 05:16] VITALS: BP 133/68
[2020-07-17 07:44] LABS: BASOPHIL % 0.5 % (0.2-1.3); RED CELL DISTRIBUTION WIDTH 13.6 % (12.3-17.7)
[2020-07-17 07:54] LABS: CALCIUM 9.2 mg/dL (8.5-10.1); CARBON DIOXIDE 28.7 mmol/L (21-32); CHLORIDE SERUM 101 mmol/L (98-107); CREATININE SERUM 1.2 mg/dL (0.6-1.0); GLUCOSE SERUM 93 mg/dL (74-106); MAGNESIUM 2.1 mg/dL (1.8-2.4); PLATELET COUNT 103 x10^3mcL (179-408); SODIUM SERUM 139 mmol/L (136-145)
[2020-07-17 08:05] VITALS: BP 134/72
[2020-07-17 11:42] VITALS: BP 103/70
[2020-07-17 12:40] VITALS: Ht 129.5 cm; Wt 33.2 kg
[2020-07-17 17:18] VITALS: BP 127/86
[2020-07-17 20:05] VITALS: BP 128/76
[2020-07-18 05:16] VITALS: BP 138/63
[2020-07-18 06:34] LABS: BASOPHIL % 0.7 % (0.2-1.3); RED CELL DISTRIBUTION WIDTH 13.3 % (12.3-17.7)
[2020-07-18 06:55] LABS: CALCIUM 10.4 mg/dL (8.5-10.1); CARBON DIOXIDE 34.3 mmol/L (21-32); CHLORIDE SERUM 99 mmol/L (98-107); CREATININE SERUM 1.2 mg/dL (0.6-1.0); GLUCOSE SERUM 101 mg/dL (74-106); SODIUM SERUM 139 mmol/L (136-145)
[2020-07-18 06:57] LABS: PLATELET COUNT 114 x10^3mcL (179-408)
[2020-07-18 08:32] VITALS: BP 141/71
[2020-07-18 12:28] VITALS: BP 140/69
[2020-07-18 16:37] VITALS: BP 142/68
[2020-07-18 20:46] VITALS: BP 98/82
[2020-07-19 04:01] VITALS: BP 142/58
[2020-07-19 06:51] LABS: CALCIUM 10.1 mg/dL (8.5-10.1); CARBON DIOXIDE 31.1 mmol/L (21-32); CHLORIDE SERUM 96 mmol/L (98-107); CREATININE SERUM 1.4 mg/dL (0.6-1.0); GLUCOSE SERUM 96 mg/dL (74-106); POTASSIUM SERUM 3.8 mmol/L (3.5-5.1); SODIUM SERUM 136 mmol/L (136-145)
[2020-07-19 07:18] LABS: BASOPHIL % 0.4 % (0.2-1.3); RED CELL DISTRIBUTION WIDTH 13.3 % (12.3-17.7)
[2020-07-19 07:43] LABS: PLATELET COUNT 125 x10^3mcL (179-408)
[2020-07-19 08:36] VITALS: BP 125/75
[2020-07-19 11:52] VITALS: BP 114/68
[2020-07-19 16:46] VITALS: BP 137/69
[2020-07-19] MEDS ORDERED: LASIX40 MG PO (17:50)
[2020-07-19 18:18] VITALS: BP 137/69
== END 2020-07-19 19:07 | disposition home or self-care (01) | DRG 194 ==
LOC: ED 10:19 → DU 12:22
PROVIDERS: Emergency Medicine; ADMIT Family Medicine; ATTEND Family Medicine
DX: I11.0 Hypertensive heart disease with heart failure (principal); J96.01 Acute respiratory failure with hypoxia; N17.9 Acute kidney failure, unspecified; I27.20 Pulmonary hypertension, unspecified; E83.52 Hypercalcemia; I08.3 Combined rheumatic disorders of mitral, aortic and tricuspid valves; I48.20 Chronic atrial fibrillation, unspecified; Z20.822 Contact with and (suspected) exposure to COVID-19; I50.33 Acute on chronic diastolic (congestive) heart failure; I25.10 Atherosclerotic heart disease of native coronary artery without angina pectoris
CPT/HCPCS: 83880; G0378; J1940